=== PATIENT | male | born 1960 | race Caucasian/White ===

== ENCOUNTER 2025-04-16 09:21 | Emergency (ER) | payer BC, SELFPAY ==
[2025-04-16 09:24] VITALS: BP 142/70
[2025-04-16 10:27] VITALS: BMI 22.2
--- NOTE | 2025-04-16 10:39 | ED.GENMED ---
History of Present Illness
General
Chief Complaint: Skin Surface Trauma
Source: patient
Time Seen by Provider: 04/16/25 10:23
History of Present Illness
History of Present Illness:
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 Patient states that the cutting
board started to fall and when he went to go catch it accidentally cut the left hand. Tetanus vaccine is up-to-date, [id number], no other injury sustained.
Past History
Past History
ED Past Medical History: HTN
ED Past Surgical History: Orthopedic
Social History
Tobacco: Former smoker
Alcohol: Occasional
Drug: None
Personal:
Living: with family
Employment: Employed
Review of Systems
Review of Systems
All Other Systems: ROS reviewed and negative except as documented in HPI and ROS
Phy Exam
Physical Exam
Physical Exam:
GENERAL: Alert , in no apparent distress
EYE: conjunctiva clear
Head: Normocephalic atraumatic
NECK: Supple,
ENT: mmm.
LUNGS: no acute respiratory distress
NEUROLOGICAL: Alert and oriented
SKIN: Warm and dry, 2 cm laceration to the thenar eminence, superficial, linear, mild oozing but no active bleeding
MUSCULOSKELETAL: well perfused. Full range of motion of all digits and intact and equal sensation throughout
PSYCH: Normal and appropriate interaction.
Scores
Heart Failure Risk
Heart Failure Risk Score: Not Applicable
Heart Score for Chest Pain Patients
STEMI patient?: Not applicable
Withdrawal Assessment of Alcohol
Withdrawal Assessment Completed?: Not applicable
Course
Vital Signs
Initial and Last Documented VS:
Initial Vital Signs
Temp Pulse Resp BP Pulse Ox
97.8 F 81 16 142/70 97
04/16/25 09:24 04/16/25 09:24 04/16/25 09:24 04/16/25 09:24 04/16/25 09:24
Last Documented Vital Signs
Temp Pulse Resp BP Pulse Ox
97.8 F 81 16 142/70 97
04/16/25 09:24 04/16/25 09:24 04/16/25 09:24 04/16/25 09:24 04/16/25 10:40
Procedures
Laceration Closure
Left Hand:
Status of Wound: clean
Size of Wound in cm: 2
Description of Wound Edges: sharp
Preparation: cleaned with saline
Anesthesia: 1% Lidocaine
Type of Closure: single layer closure
Skin Closure Material: 5-0 prolene
Number of sutures: 7
MDM/Problems Addressed
Differential Diagnosis Includes:
Superficial laceration
No concern for tendon or nerve injury
No concern for fracture
MDM/Problems Addressed:
64-year-old male presenting to the ER for evaluation after sustaining laceration to the left hand while butchering a deer. Laceration repaired as above without difficulty. No concern for tendon/nerve/fracture involvement. Patient advised on wound
care. Otherwise stable for discharge home and aware of return precautions.
*Pulse Oximetry
SaO2: 97
Oxygen Mode of Delivery: Room air
Patient hypoxic: no
*Critical Care Note
Total Time (30-74mins, 75-104mins- exclusive of procedures): Not Applicable
ED Attending Note
-
Portions of this chart may have been created with voice recognition software.� Occasional wrong word or��sound alike� substitutions may have occurred due to the inherent limitations of voice recognition software.
Discharge Plan
Departure
Patient Disposition: Home (Routine Discharge)
Date of Disposition: 04/16/25
Time of Disposition: 10:39
Patient with high blood pressure during this ER visit?: Yes
Discharge Problem:
Laceration of left hand
Instructions: Laceration Repair With Stitches (DC)
Prescriptions:
No Action
clindamycin HCl 300 MG capsule
300 mg PO TID Qty: 21 0RF
cephalexin 500 mg capsule
500 mg PO BID 7 Days Qty: 14 0RF
Activity Restrictions/Additional Instructions:
Suture removal in 7-10 days
Interventions
Interventions:
*Risk Screen - Suicide Last Done: 04/16/25 09:24
*General Assessment Last Done: 04/16/25 10:28
*Neglect/Abuse Screening Last Done: 04/16/25 10:29
*ED COVID-19 Vaccine History Last Done: 04/16/25 10:28
*ED Influenza Vaccine History Last Done: 04/16/25 09:24
[facility] Fall Risk Assessment Tool Last Done: 04/16/25 10:27
ED-Skin Assessment Last Done: 04/16/25 10:27
Discharge Date and Time
Print Language: POLISH
== END 2025-04-16 10:58 | disposition home or self-care (01) ==
LOC: EMR 09:21
PROVIDERS: EMERGENCY PHYSICIAN Emergency Medicine
DX: S61.412A Laceration without foreign body of left hand, initial encounter (principal); W27.8XXA Contact with other nonpowered hand tool, initial encounter; Y92.89 Other specified places as the place of occurrence of the external cause; I10 Essential (primary) hypertension; Z87.891 Personal history of nicotine dependence
CPT/HCPCS: 12001; 99282